=== PATIENT | female | born 1990 | race Hispanic/Latino ===

== ENCOUNTER 2016-11-27 21:03 | Inpatient (IN) | payer MEDICAID ==
--- NOTE | 2016-11-27 22:09 | C.PDOC ---
History Of Present Illness Pt wants detox from heroin. last use a few hours ago. Denies any suicidal or homicidal ideation Time Seen by Provider: 11/27/16 22:08 Chief Complaint (Nursing): Substance Abuse History Per: Patient History/Exam Limitations: no limitations Onset/Duration Of Symptoms: Days Current Symptoms Are (Timing): Still Present Suicide/Self Injury Attempted (Context): None Modifying Factor(s): Narcotics Severity: Moderate Pain Scale Rating Of: 4 Associated Symptoms: Depression. denies: Suicidal Thoughts, Suicidal Plan Involuntary Hold By: None Recent travel outside of the [place]: No Additional History Per: Patient Past Medical History Reviewed: Historical Data, Nursing Documentation, Vital Signs Vital Signs: Last Vital Signs Temp 98 F 11/27/16 21:57 Pulse 76 11/27/16 21:57 Resp 20 11/27/16 21:57 BP 102/68 11/27/16 21:57 Pulse Ox 100 11/27/16 22:11 Family History: States: No Known Family Hx - Social History Hx Alcohol Use: No Hx Substance Use: No Review Of Systems Constitutional: Negative for: Fever, Chills Eyes: Negative for: Redness ENT: Negative for: Throat Pain Cardiovascular: Negative for: Chest Pain Respiratory: Negative for: Shortness of Breath Gastrointestinal: Negative for: Nausea, Vomiting Genitourinary: Negative for: Hematuria Musculoskeletal: Negative for: Back Pain Skin: Negative for: Rash Neurological: Negative for: Weakness Psych: Positive for: Anxiety Physical Exam - Physical Exam Appears: Non-toxic, No Acute Distress Skin: Warm, Dry Head: Normacephalic Eye(s): bilateral: Normal Inspection Oral Mucosa: Moist Neck: Supple Chest: Symmetrical Cardiovascular: Rhythm Regular Respiratory: No Rales, No Rhonchi Gastrointestinal/Abdominal: Soft, No Tenderness, No Distention Back: No CVA Tenderness Extremity: Normal ROM Extremity: Bilateral: Atraumatic Neurological/Psych: Oriented x3, Normal Speech, Normal Cognition Gait: Steady ED Course And Treatment - Laboratory Results Result Diagrams: 11/27/16 22:47 11/27/16 22:47 O2 Sat by Pulse Oximetry: 100 Pulse Ox Interpretation: Normal Disposition Discussed With : Carlos A Johns Comment: accepted the pt on his service and took over the care at 12:09 AM Doctor Will See Patient In The: Hospital Counseled Patient/Family Regarding: Studies Performed, Diagnosis - Disposition Disposition: HOSPITALIZED Disposition Time: 22:09 Condition: FAIR - POA Present On Arrival: Poor Glycemic Control - Clinical Impression Clinical Impression: Drug dependence Decision To Admit - Pt Status Changed To: Hospital Disposition Of: Inpatient - Admit Certification Admit to Inpatient:: After my assessment, the patient will require hospitalization for at least two midnights. This is because of the severity of symptoms shown, intensity of services needed, and/or the medical risk in this patient being treated as an outpatient. - InPatient: Physician Admission Certification: I certify that this patient requires 2 or more midnights of care for the following reason:: After my assessment, the patient will require hospitalization for at least two midnights. This is because of the severity of symptoms shown, intensity of services needed, and/or the medical risk in this patient being treated as an outpatient. - . Bed Request Type: Detox Admitting Physician: Carlos A Johns Patient Diagnosis: Drug dependence
[2016-11-27 22:53] LABS: BASO % 0.7 % (0.0-2.0); EOS # 0.1 K/uL (0.0-0.7); EOS % 1.8 % (0.0-4.0); HEMATOCRIT 38.4 % (34.0-47.0); LYMPH # 1.7 K/uL (1.0-4.3); LYMPH % 24.3 % (20.0-40.0); MEAN CELL VOLUME 82.8 fL (81.0-99.0); MEAN CORPUSCULAR HGB CONC 33.8 g/dL (33.0-37.0); MEAN PLATELET VOLUME 8.1 fL (7.2-11.7); MONO # 0.5 K/uL (0.0-0.8); MONO % 7.5 % (0.0-10.0); RED CELL DISTRIBUTION WIDTH 14.5 % (11.5-14.5)
[2016-11-27 23:01] LABS: CHLORIDE 99 mmol/L (98-107)
[2016-11-27 23:02] LABS: SODIUM 142 mmol/L (132-148)
[2016-11-27 23:04] LABS: ALB/GLOB RATIO 1.1 (1.0-2.1); ALKALINE PHOSPHATASE 79 U/L (38-126); AST/SGOT 92 U/L (14-36); BILIRUBIN,TOTAL 0.5 mg/dL (0.2-1.3); BLOOD UREA NITROGEN 11 mg/dL (7-17); CARBON DIOXIDE 28 mmol/L (22-30); GFR AFRICAN-AMERICAN > 60; RBC URINE 1 /hpf (0-3); TOTAL PROTEIN 7.4 g/dL (6.3-8.3); URINE BACTERIA MANY (<OCC); URINE BILIRUBIN NEGATIVE (NEGATIVE); URINE BLOOD NEGATIVE (NEGATIVE); URINE COLOR YELLOW (YELLOW); URINE GLUCOSE (UA) NORMAL (Normal); URINE KETONE NEGATIVE (NEGATIVE); URINE LEUKOCYTE ESTERASE 2+ Leu/uL (Negative); URINE PROTEIN 1+ mg/dL (NEGATIVE); URINE UROBILINOGEN NORMAL mg/dL (0.2-1.0); WBC URINE 22 /hpf (0-5)
[2016-11-27 23:05] LABS: ALCOHOL SERUM < 10 mg/dl (0-10); ALT/SGPT 161 U/L (9-52); CALCIUM 9.1 mg/dl (8.6-10.4); GLUCOSE,RANDOM 117 mg/dL (65-105)
[2016-11-28 06:07] VITALS: RESP 18
--- NOTE | 2016-11-28 07:37 | PCM.BM ---
Treatment Plan Problems - Problems identified on initial assessmt opioid dependence Date Initiated: 11/27/16 Assessment reference: NA cocaine use Date Initiated: 11/27/16 Assessment reference: NA Xanax abuse Date Initiated: 11/27/16 Assessment reference: NA Treatment assets and liabiliti Patient Assests: ADL independent Patient Liabilities: financial problems, relationship conflicts, substance abuse - Milieu Protocol Maintain good personal hygiene: daily Encourage regular showers, daily Remind patient to perform daily oral care, every shift Encourage regular showers, every shift Remind patient to perform daily oral care Conduct patient checks and document Observation sheet: Q15 minutes Maintain personal safety: daily Educate patient to report safety concerns to staff, daily Monitor environment for contraband/sharps, every shift Educate patient to report safety concerns to staff, every shift Monitor environment for contraband/sharps Medication safety: Monitor for expected outcome, potential side effects: daily, every shift, Assess barriers to learning: daily, every shift, Assess readiness for medication education: daily, every shift
--- NOTE | 2016-11-28 11:02 | PCM.PSYCH ---
Initial Psychiatric Evaluation - Initial Psychiatric Evaluation Type of Admission: Voluntary Legal Status: Capacity Chief Complaint (in patient's own words): "I got to stop this" History of Present Illness and Precipitating Events: The patient is seen, chart reviewed and case discussed. This is a 26-year-old female, single with a 2.5-year-old daughter whose custody is given to the patient's sister. The patient is unemployed and lives with a boyfriend whom she "hates." She says she will go to a rehab and then move on with her life and leave him. The patient admits to using 30-50 bags of intravenous heroin for the past 11 years. She relapsed in February 2015 and has been using since. She also uses cocaine, only crack, 3 of the 20s a day, again for the past 11 years. Finally, she admits to using Xanax up to 4 mg per day but she denies any withdrawal symptoms when she doesn't use. She denies alcohol and all other drug use. She smokes 1 pack per day cigarettes but she doesn't want a patch. She has been to detox and rehabilitation more than 20 times both. Her longest sobriety was about 4 years when she was in [facility] followed by at . She has never done maintenance treatment and she reports dislike, including Vivitrol. Currently she has some anxiety, irritability but she denies other psych symptoms. However, she had been diagnosed with bipolar disorder, although she refused to take medications. She says she has stayed stable despite not being on medications. Past psych history: One admission when she was 14 years old. Diagnosed with bipolar disorder. Family psych history: Maternal grandfather committed suicide, he too was bipolar. He also used drugs. Mother's side lots of people use drugs and alcohol. Her brothers also used alcohol. Medical history: Hepatitis C Current Medications: Active Medications Generic Name Dose Route Start Last Admin Trade Name Freq PRN Reason Stop Dose Admin Clonidine HCl 0.1 mg 11/28/16 06:47 Catapres PO Q8 PRN COWS Score More or Equal to 5 Dicyclomine HCl 10 mg 11/28/16 06:49 Bentyl PO Q6 PRN Muscle spasm Hydroxyzine HCl 25 mg 11/28/16 06:49 Atarax PO Q6 PRN Anxiety Ibuprofen 400 mg 11/28/16 06:49 Motrin Tab PO Q6 PRN Pain, moderate (4-7) Loperamide HCl 2 mg 11/28/16 06:47 Imodium PO Q8 PRN Diarrhea Nitrofurantoin Macrocrystals 100 mg 11/28/16 10:00 11/28/16 10:09 Macrobid PO 100 mg Q12H AJIT Administration Ondansetron HCl 4 mg 11/28/16 06:47 Zofran Tab PO Q8 PRN Nausea/Vomiting Pneumococcal Polyvalent Vaccine 0.5 ml 12/01/16 10:00 Pneumovax 23 Vaccine IM 12/01/16 10:01 .ONCE ONE Trazodone HCl 50 mg 11/28/16 06:52 Desyrel PO HS PRN Insomnia Past Psychiatric History - Past Psychiatric History Previous Treatment History: Inpatient (age 14) Pertinent Medical Hx (Current Medical&Sleep Prob, Allergies): Allergies Allergy/AdvReac Type Severity Reaction Status Date / Time No Known Allergies Allergy Verified 11/07/16 20:42 No Known Home Med 11/07/16 Review of Systems - Psychiatric Psychiatric: Abnormal Sleep Pattern, Anxiety, Irritability. absent: Hallucinations, Homicidal Ideation, Suicidal Ideation Mental Status Examination - Personal Presentation Personal Presentation: Looks stated age - Affect Affect: Constricted - Motor Activity Motor Activity: Calm - Reliability in Providing Information Reliability in Providing Information: Good - Speech Speech: Organized - Mood Mood: Anxious - Formal Thought Process Formal Thought Process: No Impairment - Cognitive Functions Orientation: Person, Place, Situation, Time Sensorium: Alert Attention/Concentration: Attentive Estimate of Intelligence: Average Judgement: Intact, as evidence by: Insight regarding need for hospitalization Memory: Recent intact, as evidence by: Ability to recall events of the day, Remote intact, as evidenced by: Abilit to recall sig. life events - Risk Risk: Withdrawal, Diminished functioning - Strength & Assets Inventory Strength & Assets Inventory: Cooperative - Limitations Limitations: Living alone, Other (unemployed) DSM 5 DX - DSM 5 DSM 5 Diagnosis: Opioid withdrawal Opioid use - severe Cocaine use d/o -severe Sedative, hypnotic use d/o - moderate Bipolar d/o - last episode unspecified r/o personality d/o - Recommended/Plan of Treatment Treatment Recommendations and Plan of Treatment: Subutex detox Gabapentin for augmentation for cocaine wdw Monitor xanax wdw sxs, start librium if needed Macrobid for UTI As needed meds and vitamins Attend groups and activities MT for abstinence and CBT for relapse prevention Support and psychoeducation Consider and encourage MAT Refer to after care 33 min Projected ELOS: 4-5 days Prognosis: Good with detox, rehab and MAT Discharge Plan and Discharge Criteria: No wdw sxs Refer to MAT - Smoking Cessation Smoking Cessation Initiated: Yes
[2016-11-28 13:33] VITALS: BP 95/58; PULSE 63; TEMP 98; O2SAT 97
--- NOTE | 2016-11-28 21:47 | PCM.PYCHDC ---
Mental Status Examination - Mental Status Examination Orientation: Person, Place, Situation, Time Memory: Intact Mood: Anxious Affect: Constricted Speech: Appropriate Attention: WNL Concentration: Poor Association: WNL Fund of Knowledge: WNL Formal Thought Process: No Impairment Suicidal Ideation: No Current Homicidal Ideation?: No Discharge Summary - Discharge Note Reason for Hospitalization: Heroin detox Psychiatric History (includes Medical, Family, Personal Hx): Likely borderline but diagnosed as bipolar d/o - and she could be both too Consultations:: List each consultation separately and include: 1. Reason for request. 2. Findings. 3. Follow-up Summary of Hospital Course include:: 1. Description of specific treatment plan utilized for patients during their course of treatmen. 2. Summarize the time- course for resolution of acute symptoms and/or regressed behaviors. 3. Describe issues identified and worked on during hospitalization. 4. Describe medication utilized. 5. Describe medical problems identified and treated. 6. Reassessment of suicide risk Summary of Hospital Course: On admission: The patient is seen, chart reviewed and case discussed. This is a 26-year-old female, single with a 2.5-year-old daughter whose custody is given to the patient's sister. The patient is unemployed and lives with a boyfriend whom she "hates." She says she will go to a rehab and then move on with her life and leave him. The patient admits to using 30-50 bags of intravenous heroin for the past 11 years. She relapsed in February 2015 and has been using since. She also uses cocaine, only crack, 3 of the 20s a day, again for the past 11 years. Finally, she admits to using Xanax up to 4 mg per day but she denies any withdrawal symptoms when she doesn't use. She denies alcohol and all other drug use. She smokes 1 pack per day cigarettes but she doesn't want a patch. She has been to detox and rehabilitation more than 20 times both. Her longest sobriety was about 4 years when she was in [facility] followed by at . She has never done maintenance treatment and she reports dislike, including Vivitrol. Currently she has some anxiety, irritability but she denies other psych symptoms. However, she had been diagnosed with bipolar disorder, although she refused to take medications. She says she has stayed stable despite not being on medications. Past psych history: One admission when she was 14 years old. Diagnosed with bipolar disorder. Family psych history: Maternal grandfather committed suicide, he too was bipolar. He also used drugs. Mother's side lots of people use drugs and alcohol. Her brothers also used alcohol. Medical history: Hepatitis C Hospital course: The pt was admitted and started on treatment with therapy, support, psychoeducation and medications. MS used as she was very unmotivated. All the risks and benefits of medications are discussed and the patient understood and agreed. She was not in withdrawal and she suddenly decided to NOt wait until she gets into w and start treatment. It was extremely premature and distorted; as she "knew" meds would not work. She didn;t even wait to try and no reassurance or explaing oif risks (relapse, OD and ) persuaded her to stay. She said she didn;t feel ready, and left. It is ironic that she went back to live with her BF whom she admitted earlier that she "hates." She left AMA - Final Diagnosis (DSM 5) Condition upon Discharge: FAIR DSM 5: Opioid withdrawal Opioid use - severe Cocaine use d/o -severe Sedative, hypnotic use d/o - moderate Bipolar d/o - last episode unspecified r/o personality d/o Disposition: AGAINST MEDICAL ADVICE Follow-up Treatment Plan: No meds Return to ER if needed Consider suboxone or Methadone Stay away from drugs and alcohol
[2016-12-01] MEDS ORDERED: Pneumococcal 23-Valent Vaccine IM ONE (10:00)
== END 2016-11-28 13:50 | disposition left against medical advice (07) | DRG 743 ==
LOC: C.ER 21:03 → C.7D 11-28 00:10
PROC: HZ2ZZZZ Detoxification Services for Substance Abuse Treatment (ICD-10-PCS; principal; 2016-11-28)
PROC: HZ59ZZZ Individual Psychotherapy for Substance Abuse Treatment, Supportive (ICD-10-PCS; 2016-11-28)
PROC: HZ46ZZZ Group Counseling for Substance Abuse Treatment, Psychoeducation (ICD-10-PCS; 2016-11-28)
PROC: GZ3ZZZZ Medication Management (ICD-10-PCS; 2016-11-28)
DX: F11.23 Opioid dependence with withdrawal (principal); N39.0 Urinary tract infection, site not specified; B18.2 Chronic viral hepatitis C; F14.90 Cocaine use, unspecified, uncomplicated; F31.9 Bipolar disorder, unspecified; F13.10 Sedative, hypnotic or anxiolytic abuse, uncomplicated; F17.210 Nicotine dependence, cigarettes, uncomplicated; F41.9 Anxiety disorder, unspecified

== ENCOUNTER 2017-02-12 17:29 | Inpatient (IN) | payer MEDICAID ==
[2017-02-12 19:00] LABS: CHLORIDE 101 mmol/L (98-107)
[2017-02-12 19:01] LABS: POTASSIUM 3.4 mmol/L (3.6-5.2); SODIUM 135 mmol/L (132-148)
[2017-02-12 19:03] LABS: BILIRUBIN,TOTAL 0.9 mg/dL (0.2-1.3); GFR AFRICAN-AMERICAN > 60
[2017-02-12 19:04] LABS: ALB/GLOB RATIO 1.2 (1.0-2.1); ALKALINE PHOSPHATASE 82 U/L (38-126); ALT/SGPT 63 U/L (9-52); AST/SGOT 43 U/L (14-36); BLOOD UREA NITROGEN 12 mg/dL (7-17); CALCIUM 9.4 mg/dl (8.6-10.4); CARBON DIOXIDE 24 mmol/L (22-30); GLUCOSE,RANDOM 137 mg/dL (65-105)
[2017-02-12 19:05] LABS: ALCOHOL SERUM < 10 mg/dl (0-10); BASO % 0.3 % (0.0-2.0); EOS # 0.2 K/uL (0.0-0.7); EOS % 3.3 % (0.0-4.0); HEMATOCRIT 39.9 % (34.0-47.0); LYMPH # 1.8 K/uL (1.0-4.3); MEAN CELL VOLUME 83.4 fL (81.0-99.0); MEAN CORPUSCULAR HEMOGLOBIN 27.9 pg (27.0-31.0); MEAN CORPUSCULAR HGB CONC 33.5 g/dL (33.0-37.0); MEAN PLATELET VOLUME 8.4 fL (7.2-11.7); MONO # 0.6 K/uL (0.0-0.8); MONO % 9.4 % (0.0-10.0); NRBC % 0.1 % (0.0-2.0); WHITE BLOOD COUNT 6.2 K/uL (4.8-10.8)
[2017-02-12 19:07] LABS: RBC URINE 7 /hpf (0-3); URINE BACTERIA MOD (<OCC); URINE BILIRUBIN NEGATIVE (NEGATIVE); URINE BLOOD NEGATIVE (NEGATIVE); URINE GLUCOSE (UA) NORMAL (Normal); URINE KETONE NEGATIVE (NEGATIVE); URINE LEUKOCYTE ESTERASE 3+ Leu/uL (Negative); URINE PROTEIN 1+ mg/dL (NEGATIVE); WBC URINE 86 /hpf (0-5)
[2017-02-12 19:08] LABS: URINE COLOR YELLOW (YELLOW)
--- NOTE | 2017-02-12 20:01 | C.PDOC ---
History Of Present Illness 26yo female, presents to the ED requesting detox for heroin use. Patient admits to IV drug abuse with using several bundles per day. She denies any chest pain, difficulty breathing, abdominal pain. She offers no medical complaints. Time Seen by Provider: 02/12/17 18:10 Chief Complaint (Nursing): Substance Abuse History Per: Patient History/Exam Limitations: no limitations Current Symptoms Are (Timing): Still Present Modifying Factor(s): Narcotics Past Medical History Reviewed: Historical Data, Nursing Documentation, Vital Signs Vital Signs: Last Vital Signs Temp 97.6 F 02/12/17 20:05 Pulse 55 L 02/12/17 20:05 Resp 18 02/12/17 20:05 BP 97/63 L 02/12/17 20:05 Pulse Ox 100 02/12/17 20:05 - Medical History PMH: Hepatitis (C) Denies: Diabetes, HIV, HTN, Chronic Kidney Disease, Seizures, Sexually Transmitted Disease - [facility] Procedures DETOXIFICATION SERVICES FOR SUBSTANCE ABUSE TREATMENT (11/28/16) GROUP FINANCIAL SALES REPRESENTATIVE FOR SUBSTANCE ABUSE TREATMENT, PSYCHOEDUCATION (11/28/16) INDIV PSYCHOTHERAPY FOR SUBSTANCE ABUSE TREATMENT, SUPPORT (11/28/16) MEDICATION MANAGEMENT (11/28/16) Family History: States: Unknown Family Hx - Social History Hx Alcohol Use: No Hx Substance Use: Yes - Immunization History Hx Tetanus Toxoid Vaccination: Yes Hx Influenza Vaccination: No Hx Pneumococcal Vaccination: No Review Of Systems Cardiovascular: Negative for: Chest Pain Respiratory: Negative for: Shortness of Breath Gastrointestinal: Negative for: Abdominal Pain Psych: Positive for: Other (requesting detox for IV DA) Physical Exam - Physical Exam Additional Physical Exam Comments: Constitutional: No acute distress. Thin female. Head: Normocephalic. Atraumatic. Eyes: PERRL. EOMI. Neck: Supple. Cardiovascular: Regular rate and rhythm. Chest: No tenderness. Respiratory: Clear to auscultation bilaterally. GI: Soft. Nontender. Nondistended. Normoactive bowel sounds. No rebound. No guarding. Musculoskeletal: No tenderness or swelling of extremities. Multiple track mckeon noted to bilateral upper extremities. Neurologic: Alert, no focal deficit. ED Course And Treatment - Laboratory Results Result Diagrams: 02/12/17 18:45 02/12/17 18:45 O2 Sat by Pulse Oximetry: 95 (RA) Medical Decision Making Medical Decision Making: Impression: 26yo female presents for detoxification Plan: -- Crisis evaluation 1950 Patient seen and evaluated by crisis team; patient to be admitted for severe opioid abuse under Dr. Akbar 806 pm pt is medically cleared for admission to detoxl pt has uti, recommend macrobid 100 mg po bid x 7 days also pt has mildly elevated blood glucose; recmmend repeat, and if still elevated, to get an inpatient med consult. Disposition Discussed With : Swati Akbar Doctor Will See Patient In The: Hospital - Disposition Disposition Time: 20:08 Condition: STABLE Forms: [employer] (Paraguayan) - Clinical Impression Clinical Impression: Opioid use disorder, severe, dependence, Urinary tract infection - PA / TRADING SPECIALIST / Resident Statement MD/DO has reviewed & agrees with the documentation as recorded. - Scribe Statement The provider has reviewed the documentation as recorded by the Roe Mazariegos Provider Attestation: All medical record entries made by the Roe were at my direction and personally dictated by me. I have reviewed the chart and agree that the record accurately reflects my personal performance of the history, physical exam, medical decision making, and the department course for this patient. I have also personally directed, reviewed, and agree with the discharge instructions and disposition. Decision To Admit - Pt Status Changed To: Hospital Disposition Of: Inpatient - Admit Certification Admit to Inpatient:: After my assessment, the patient will require hospitalization for at least two midnights. This is because of the severity of symptoms shown, intensity of services needed, and/or the medical risk in this patient being treated as an outpatient. - InPatient: Physician Admission Certification: I certify that this patient requires 2 or more midnights of care for the following reason:: for heroin detox - . Bed Request Type: Detox Admitting Physician: Swati Akbar Patient Diagnosis: Opioid use disorder, severe, dependence, Urinary tract infection
[2017-02-12 22:43] VITALS: RESP 18
[2017-02-13] MEDS ORDERED: Aluminum Hydroxide/Magnesium Hydroxide Susp (30 mL) PO PRN (00:04)
--- NOTE | 2017-02-13 00:34 | PCM.BM ---
<Hailey Allred - Last Filed: 02/13/17 00:31> Treatment Plan Problems - Problems identified on initial assessmt opiate withdrawal Date Initiated: 02/12/17 Time Initiated: 22:45 Assessment reference: NA Status: Active Treatment assets and liabiliti Patient Assests: cooperative, ADL independent, negotiates basic needs Patient Liabilities: substance abuse - Milieu Protocol Maintain good personal hygiene: daily Encourage regular showers, daily Remind patient to perform daily oral care, daily Assist patient to perform ADL's Conduct patient checks and document Observation sheet: Q15 minutes Maintain personal safety: every shift Educate patient to report safety concerns to staff, every shift Monitor environment for contraband/sharps Medication safety: Monitor for expected outcome, potential side effects: every shift, Assess barriers to learning: every shift, Assess readiness for medication education: every shift <Rosey Rico - Last Filed: 02/13/17 11:52> Family Contact Family involvement: Famliy/SO not involved Family contact: Patient declines to allow family contact at present - Goals for Treatment Patient goals for treatment: Complete detox and transition to long-term rehab at [facility]. Discharge/Continuing Care - Education Needs Education Needs: Patient Medication, Patient Diagnosis/Disease Process, Patient Coping Skills, Patient Anger Management skills, Patient Placement options, Patient Community resources - Discharge Discharge Criteria: Normal sleep pattern, No longer exhibiting s/s of withdrawal , Reduction of target symptoms Discharge to:: Substance Abuse Rehab - Treatment Team Participation Patient/Family/SO Statement: 02/13/17 11:53 "I wanna go to [facility]. I went there before for their long-term rehab and I stayed clean for 3 1/2 years..." Discussed with Family/SO: No Was Patient/Family/SO present at Treatment Team Meeting: Yes <Swati Akbar - Last Filed: 02/13/17 12:41> - Diagnosis (1) Opioid use disorder, severe, dependence Status: Acute Interventions: 02/13/17 12:41 * Assess 7x/week regarding severity of withdrawal * Educate regarding risks, benefits, side effects and alternatives of medications * Use Motivational Interviewing for abstinence * Use CBT for relapse prevention * Medication management for withdrawal symptoms * Encourage medication assisted treatment * (2) Cocaine use disorder, severe, dependence Status: Acute Interventions: 10/11/17 12:41 * Assess 7x/week regarding severity of withdrawal * Educate regarding risks, benefits, side effects and alternatives of medications * Use Motivational Interviewing for abstinence * Use CBT for relapse prevention * Medication management for withdrawal symptoms * Encourage medication assisted treatment *
[2017-02-13 10:35] VITALS: O2SAT 100
--- NOTE | 2017-02-13 12:44 | PCM.PSYCH ---
Initial Psychiatric Evaluation - Initial Psychiatric Evaluation Type of Admission: Voluntary Legal Status: Capacity Chief Complaint (in patient's own words): "I need help so bad" History of Present Illness and Precipitating Events: The patient is seen, chart reviewed and case discussed. This is a 26-year-old female, single with a 3-year-old daughter whose custody was given to the patient's sister. The patient is unemployed and lives with a boyfriend who drove her here. She says she left him and stayed homeless in a drug binge in [place] last few weeks. She says she will go to a rehab this time. She is known from her November admission where she AMA'ed almost immediately but regretted and called numerous times since then. She now says she is more dedicated/motivated for abstinence. The patient admits to using 30 bags of intravenous heroin for the past 11 years. She relapsed in February 2015 and has been using since. She also uses cocaine AND crack, again for the past 11 years. She also uses "lots of ecstasy. " Finally, she admits to using Xanax up to 2 mg per day but she denies any withdrawal symptoms when she doesn't use. She denies alcohol and all other drug use. She smokes 1 pack per day cigarettes but she doesn't want a patch. She has been to detox and rehabilitation more than 20 times both. Her longest sobriety was about 4 years when she was in [facility] followed by a TC. She has never done maintenance treatment and she reports dislike, including Vivitrol. Currently she has some anxiety, irritability but she denies other psych symptoms. However, she had been diagnosed with bipolar disorder, although she refused to take medications. She says she has stayed stable despite not being on medications. No manic sxs or psychosis elicited now. No SI/HI either Past psych history: One admission when she was 14 years old. Diagnosed with bipolar disorder. Family psych history: Maternal grandfather committed suicide, he too was bipolar. He also used drugs. Mother's side lots of people use drugs and alcohol. Her brothers also used alcohol. Medical history: Hepatitis C Current Medications: Active Medications Generic Name Dose Route Start Last Admin Trade Name Freq PRN Reason Stop Dose Admin Al Hydrox/Mg Hydrox/Simethicone 30 ml 02/13/17 00:04 Maalox 30 Ml PO TID PRN Indigestion / Heartburn Clonidine HCl 0.1 mg 02/13/17 00:04 Catapres PO Q8 PRN COWS Score More or Equal to 5 Hydroxyzine HCl 50 mg 02/12/17 23:16 Atarax PO Q6H PRN Anxiety Nitrofurantoin Macrocrystals 100 mg 02/12/17 23:30 02/13/17 12:26 Macrobid PO 02/19/17 23:31 100 mg Q12H AJIT Administration Ondansetron HCl 4 mg 02/13/17 00:04 Zofran Tab PO Q8 PRN Nausea/Vomiting Pneumococcal Polyvalent Vaccine 0.5 ml 02/15/17 10:00 Pneumovax 23 Vaccine IM 02/15/17 10:01 .ONCE ONE Trazodone HCl 100 mg 02/12/17 23:16 02/12/17 23:37 Desyrel PO 100 mg HS PRN Administration Insomnia Past Psychiatric History - Past Psychiatric History Previous Treatment History: Intensive Outpatient Pertinent Medical Hx (Current Medical&Sleep Prob, Allergies): Allergies Allergy/AdvReac Type Severity Reaction Status Date / Time No Known Allergies Allergy Verified 02/12/17 21:19 No Known Home Med 02/12/17 Review of Systems - Neurological Neurological: UNREMARKABLE - Psychiatric Psychiatric: Abnormal Sleep Pattern, Anxiety, Behavioral Changes, Difficulty Concentrating, Irritability. absent: Hallucinations, Homicidal Ideation, Paranoia, Suicidal Ideation Mental Status Examination - Personal Presentation Personal Presentation: Looks older than stated age - Affect Affect: Constricted - Motor Activity Motor Activity: Calm - Reliability in Providing Information Reliability in Providing Information: Good - Speech Speech: Organized - Mood Mood: Anxious - Formal Thought Process Formal Thought Process: No Impairment - Cognitive Functions Orientation: Person, Place, Situation, Time Sensorium: Drowsy Attention/Concentration: Easily distracted Estimate of Intelligence: Average Judgement: Imparied, as evidence by: Poor judgement (ignoring treatment, staying homeless in [place] instead of returning home), Intact, as evidence by : Insight regarding need for hospitalization Memory: Recent intact, as evidence by: Ability to recall events of the day, Remote intact, as evidenced by: Abilit to recall sig. life events - Risk Risk: Seizure, Withdrawal, Diminished functioning - Strength & Assets Inventory Strength & Assets Inventory: Cooperative - Limitations Limitations: Living alone, Other DSM 5 DX - DSM 5 DSM 5 Diagnosis: Opioid withdrawal Opioid use disorder severe Amphetamine use d/o - severe Cocaine use d/o - severe r/o bipolar d/o vs. personality d/o Depressive d/o - unspecified - Recommended/Plan of Treatment Treatment Recommendations and Plan of Treatment: Subutex or methadone detox As needed medications Gabapentin for augmentation Attend groups and activities Supportive therapy and psychoeducation [place] for abstinence CBT for relapse prevention Encourage MAT Refer to rehab or IOP Attend self-help groups as well Gabapentin for stimulants/cocaine [place] and CBT for the same Abx for UTI 34 min Projected ELOS: 5-6 days Prognosis: Good with treatment Discharge Plan and Discharge Criteria: No wdw sxs Refer to rehab and consider MAT afterwards - Smoking Cessation Smoking Cessation Initiated: Yes
[2017-02-13 13:37] VITALS: BP 91/56; PULSE 60; TEMP 98.1
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
[2017-02-15] MEDS ORDERED: Influenza Vaccine 60 mcg/0.5 mL SYR (4YR UP) IM ONE (10:00)
[2017-02-15] MEDS ORDERED: Pneumococcal 23-Valent Vaccine IM ONE (10:00)
== END 2017-02-13 16:49 | disposition left against medical advice (07) | DRG 743 ==
LOC: C.ER 17:29 → C.9E 20:05 → C.7D 21:42 → C.9E 02-13 07:41 → C.7D 02-13 07:42
PROVIDERS: ADMIT Psychiatry & Neurology Psychiatry; ATTEND Psychiatry & Neurology Psychiatry
PROC: HZ2ZZZZ Detoxification Services for Substance Abuse Treatment (ICD-10-PCS; principal; 2017-02-12)
PROC: GZ56ZZZ Individual Psychotherapy, Supportive (ICD-10-PCS; 2017-02-12)
DX: F11.23 Opioid dependence with withdrawal (principal); N39.0 Urinary tract infection, site not specified; F41.9 Anxiety disorder, unspecified; F17.210 Nicotine dependence, cigarettes, uncomplicated; F19.10 Other psychoactive substance abuse, uncomplicated; F32.89 Other specified depressive episodes; F14.10 Cocaine abuse, uncomplicated; Z68.1 Body mass index [BMI] 19.9 or less, adult

== ENCOUNTER 2017-08-09 08:34 | Emergency (ER) | payer OTHER, MEDICAID ==
[2017-08-09 09:00] VITALS: TEMP 98.3
[2017-08-09] MEDS ORDERED: Epinephrine /Lidocaine HCL 1:100,000/2% 30 ml INJ ONE (09:40)
--- NOTE | 2017-08-09 10:17 | RAD ---
PROCEDURE: Cervical Spine Radiographs. Cervical spine dated 08/09/2017 HISTORY: Pain. COMPARISON: None. FINDINGS: BONES: No evidence of acute displaced or compression fractures no retropulsed fragments. Vertebral bodies exhibit relatively normal stature. . There is mild straightening and very minimal reversal of the normal cervical lordosis possibly due to muscle spasm. . DISC SPACES: Disc space heights relatively maintained. SOFT TISSUES: Prevertebral soft tissues unremarkable. No significant swelling. OTHER FINDINGS: None. IMPRESSION: No evidence of acute fractures. Mild straightening and minimal reversal of the normal cervical lordosis possibly due to muscle spasm
[2017-08-09] MEDS ORDERED: Bacitracin 500 Units/gm Oint Foilpak UD TOP ONE (10:46)
--- NOTE | 2017-08-09 10:49 | CT ---
PROCEDURE: CT HEAD WITHOUT CONTRAST. HISTORY: Dizziness COMPARISON: No prior TECHNIQUE: Axial computed tomography images were obtained through the head/brain without intravenous contrast. Radiation dose: Total exam DLP = 812.25 mGy-cm. This CT exam was performed using one or more of the following dose reduction techniques: Automated exposure control, adjustment of the mA and/or kV according to patient size, and/or use of iterative reconstruction technique. FINDINGS: HEMORRHAGE: No acute parenchymal, subarachnoid or extra-axial hemorrhage. BRAIN: No evidence of large acute infarct. No obvious parenchymal nor extra-axial mass or collection seen on this noncontrast study. Ventricular and sulcal size are within range of normal for this patient's stated age. VENTRICLES: No obstructive hydrocephalus. CALVARIUM: No evidence of acute calvarial fractures. There is mild right periorbital, supraorbital and right frontotemporal scalp contusion/soft tissue swelling associate with few bubbles of subcutaneous air consistent with overlying laceration. Few bubbles of air are also present beneath the eyelid. . Soft tissue swelling also extends medially over the inner canthus and over the right nasal bones. PARANASAL SINUSES: The visualized paranasal sinuses are well-developed and currently well-aerated. No fluid levels seen to suggest acute hemorrhage or sinusitis. Minor mucosal thickening within the ethmoid air complex and left chamber sphenoid sinus. The the MASTOID AIR CELLS: Unremarkable as visualized. No inflammatory changes. OTHER FINDINGS: None. IMPRESSION: No acute intracranial hemorrhage. Mild right-sided facial soft tissue swelling and presumed associated supraorbital laceration with few tiny bubbles of subcutaneous air.
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
[2017-08-09] MEDS ORDERED: Bacitracin 500 Units/gm Oint Foilpak UD ONE (10:58)
--- NOTE | 2017-08-09 10:58 | RAD ---
PROCEDURE: Right elbow dated 08/09/2017. HISTORY: fall COMPARISON: No prior. FINDINGS: BONES: Normal. No fracture. JOINTS: Normal. No osteoarthritis. SOFT TISSUES: Normal. JOINT EFFUSION: No large anterior nor obvious posterior joint effusion identified OTHER FINDINGS: None. IMPRESSION: No evidence of acute displaced fracture nor dislocation. If symptoms persist or worsen or if occult fracture suspected clinically consider repeat radiographs 7-10 days as most fractures should become radiographically evident in this timeframe. MRI may also be obtained.
[2017-08-09 11:43] VITALS: BP 121/70; PULSE 74; RESP 18; O2SAT 98
== END 2017-08-09 11:42 | disposition home or self-care (01) ==
LOC: C.ER 08:34
DX: S01.81XA Laceration without foreign body of other part of head, initial encounter (principal); T76.21XA Adult sexual abuse, suspected, initial encounter; Y92.89 Other specified places as the place of occurrence of the external cause